=== PATIENT | female | born 1980 | race African-American/Black ===

== ENCOUNTER 2016-12-08 23:24 | Emergency (ER) | payer MEDICAID ==
[~2016-12-08] VITALS: Ht 170.2 cm; Wt 102.1 kg
[2016-12-08 23:37] VITALS: BP 146/72
[2016-12-09] MEDS ORDERED: DEXAMETHASONE SOD PHOSPHATE 10 MG/ML VIAL ONE (00:08)
[2016-12-09] MEDS ORDERED: PENICILLIN V POTASSIUM 500 MG TABLET PO ONE ×2 (00:08→00:30)
[2016-12-09] MEDS ORDERED: DEXAMETHASONE SOD PHOSPHATE 4 MG/ML VIAL IV ONE (00:30)
== END 2016-12-09 00:59 | disposition home or self-care (01) ==
LOC: ER 23:24
DX: J03.90 Acute tonsillitis, unspecified (principal); Z88.1 Allergy status to other antibiotic agents
CPT/HCPCS: 99283; A4606; J1100; Z7610

== ENCOUNTER 2016-12-16 00:29 | Emergency (ER) | payer MEDICAID ==
[~2016-12-16] VITALS: Ht 170.2 cm; Wt 102.1 kg
[2016-12-16 00:55] VITALS: BP 141/118
== END 2016-12-16 01:54 | disposition home or self-care (01) ==
LOC: ER 00:29
DX: J02.8 Acute pharyngitis due to other specified organisms (principal); B97.89 Other viral agents as the cause of diseases classified elsewhere; Z88.1 Allergy status to other antibiotic agents; F10.20 Alcohol dependence, uncomplicated
CPT/HCPCS: 99283; A4606; Z7610

== ENCOUNTER 2020-02-12 07:18 | Emergency (ER) | payer OTHER ==
[~2020-02-12] VITALS: Ht 172.7 cm; Wt 99.8 kg
--- NOTE | 2020-02-12 07:30 | NUR ---
COUGH, CONGESTION, AND CHILLS X 1 WEEK, WORSENING WITH SOB. PATIENT A/OX4, BREATHING EVEN AND UNLABORED, NO SOB NOTED. SPO2 99% ON ROOM AIR. SEEN AND EVALUATED BY DR. MENDIETA.
[2020-02-12 08:07] LABS: BASOPHILS # (AUTO) 0.1 /CMM (0.0-0.2); BASOPHILS % (AUTO) 0.8 % (0.0-2.0); EOSINOPHILS % (AUTO) 1.2 % (0.0-6.0); HEMATOCRIT 38 % (33-45); HEMOGLOBIN 12.3 g/dL (11.5-14.8); LYMPHOCYTES # (AUTO) 3.3 /CMM (0.8-4.8); LYMPHOCYTES % (AUTO) 37.6 % (20.0-44.0); MEAN CORPUSCULAR HGB CONC 33 g/dl (31.0-36.0); MEAN CORPUSCULAR VOLUME 87 fL (82-100); MONOCYTES # (AUTO) 0.7 /CMM (0.1-1.30); MONOCYTES % (AUTO) 8.1 % (2.0-12.0); NEUTROPHILS # (AUTO) 4.6 /CMM (1.8-8.9); NEUTROPHILS % (AUTO) 52.3 % (43.0-81.0); PLATELET COUNT (AUTO) 383 /CMM (150-450); WHITE BLOOD COUNT (AUTO) 8.8 K/uL (4.3-11.0)
[2020-02-12 08:17] LABS: CALCIUM, SERUM 8.9 mg/dL (8.5-10.1); CARBON DIOXIDE 24 mmol/L (21-32); CHLORIDE 103 mmol/L (98-107); CREATININE 0.7 mg/dL (0.6-1.3); GLUCOSE 111 mg/dL (74-106); POTASSIUM 3.6 mmol/L (3.5-5.1); SODIUM SERUM 139 mmol/L (136-145); UREA NITROGEN, BLOOD 10 mg/dL (7-18)
[2020-02-12 08:30] VITALS: BP 136/89
--- NOTE | 2020-02-12 08:30 | NUR ---
DR MENDIETA AT BEDSIDE
--- NOTE | 2020-02-12 08:38 | NUR ---
Patient discharged to home in stable condition. Written and verbal after care instructions given. Patient verbalizes understanding of instruction.
== END 2020-02-12 08:41 | disposition home or self-care (01) ==
LOC: ER 07:23
DX: R05 Cough (principal); R09.81 Nasal congestion; R50.9 Fever, unspecified; R00.0 Tachycardia, unspecified; Z79.899 Other long term (current) drug therapy; Z98.890 Other specified postprocedural states; Z88.1 Allergy status to other antibiotic agents; Z60.2 Problems related to living alone; Z20.828 Contact with and (suspected) exposure to other viral communicable diseases
CPT/HCPCS: 36415; 71045-TC; 80048-TC; 84484-TC; 85025-TC

== ENCOUNTER 2020-02-17 03:01 | Emergency (ER) | payer OTHER ==
[~2020-02-17] VITALS: Ht 171.4 cm; Wt 108.0 kg
--- NOTE | 2020-02-17 03:14 | NUR ---
PATIENT CAME TO ER BED 16 C/O ACCIDENTALLY DRINKING HYDROGEN PEROXIDE. PATIENT STATES THAT SHE HAD PREVIOUSLY PLACED HYDROGEN PEROIXIDE IN A NORMAL WATER BOTTLE WHEN SHE HAD JUST WOKEN UP AND ACCIDENTALLY INGESTED THE WATER BOTTLE CONTAINING HYDROGEN PEROXIDE. PATIENT STATES THAT SHE CALLED POISON CONTROL AND WAS DIRECTED TO THE ER. C/O NAUSEA AND ACID REFLUX SENSATION BURNING SENSTAION MID EPIGASTRIC REGION. AAOX4. NO SOB. BREATHING EVENLY AND UNLABORED ON ROOM AIR. CONNECTED TO MONITOR.
[2020-02-17] MEDS ORDERED: FAMOTIDINE/PF INJ 20 MG/2 ML VIAL IV ONE ×2 (03:21→03:30)
[2020-02-17] MEDS ORDERED: IV NS 0.9% 1,000 ML BAG IV ONE (03:30)
[2020-02-17] MEDS ORDERED: DIATR MEGLU/DIATRIZOATE SODIUM 30 ML BOTTLE (GASTROGRAPHIN) PO ONE (03:30)
--- NOTE | 2020-02-17 03:35 | NUR ---
Patient signed waiver form.
--- NOTE | 2020-02-17 03:35 | NUR ---
blood drawn and sent to lab
[2020-02-17 03:50] LABS: BASOPHILS % (AUTO) 0.4 % (0.0-2.0); EOSINOPHILS % (AUTO) 1.7 % (0.0-6.0); HEMATOCRIT 37 % (33-45); HEMOGLOBIN 12.2 g/dL (11.5-14.8); LYMPHOCYTES # (AUTO) 3.1 /CMM (0.8-4.8); LYMPHOCYTES % (AUTO) 40.4 % (20.0-44.0); MEAN CORPUSCULAR HGB CONC 34 g/dl (31.0-36.0); MEAN CORPUSCULAR VOLUME 87 fL (82-100); MONOCYTES # (AUTO) 0.6 /CMM (0.1-1.30); MONOCYTES % (AUTO) 8.1 % (2.0-12.0); NEUTROPHILS # (AUTO) 3.8 /CMM (1.8-8.9); NEUTROPHILS % (AUTO) 49.4 % (43.0-81.0); PLATELET COUNT (AUTO) 426 /CMM (150-450); RED BLOOD CELL COUNT(AUTO) 4.19 MIL/uL (4.0-5.2); WHITE BLOOD COUNT (AUTO) 7.8 K/uL (4.3-11.0)
[2020-02-17 03:56] LABS: CALCIUM, SERUM 8.6 mg/dL (8.5-10.1); CREATININE 0.7 mg/dL (0.6-1.3); POTASSIUM 3.9 mmol/L (3.5-5.1)
[2020-02-17 04:01] LABS: ALBUMIN 3.6 g/dL (3.4-5.0); BILIRUBIN,DIRECT 0.1 mg/dL (0.0-0.2); BILIRUBIN,TOTAL 0.1 mg/dL (0.2-1.0); TOTAL PROTEIN, SERUM 7.7 g/dL (6.4-8.2)
[2020-02-17] MEDS ORDERED: DIATR MEGLU/DIATRIZOATE SODIUM 30 ML BOTTLE (GASTROGRAPHIN) ONE (04:28)
[2020-02-17] MEDS ORDERED: CT SWABBABLE VALVE TRANS SET 1 EA INFUS.SET MC ONE (04:28)
[2020-02-17] MEDS ORDERED: IOHEXOL-300 100 ML VIAL IV ONE (04:28)
[2020-02-17] MEDS ORDERED: IV NS 0.9% 250 ML IV ONE (04:28)
[2020-02-17 06:01] VITALS: BP 123/77
--- NOTE | 2020-02-17 06:01 | NUR ---
IV removed. Catheter intact and site benign. Pressure and 4x4 applied to site. No bleeding noted. Patient discharged to home in stable condition. Written and verbal after care instructions given. Patient verbalizes understanding of instruction.
== END 2020-02-17 06:01 | disposition home or self-care (01) ==
LOC: ER 03:06
DX: T49.0X1A Poisoning by local antifungal, anti-infective and anti-inflammatory drugs, accidental (unintentional), initial encounter (principal); Y92.89 Other specified places as the place of occurrence of the external cause; Z98.890 Other specified postprocedural states; Z88.1 Allergy status to other antibiotic agents; Z60.2 Problems related to living alone
CPT/HCPCS: 36415; 74177; 80048; 80076; 83690; 85025; 99285; J3490; J7030; J7050; Q9963 ×2; Q9967

== ENCOUNTER 2020-05-11 20:32 | Emergency (ER) | payer OTHER ==
[~2020-05-11] VITALS: Ht 170.2 cm; Wt 103.0 kg
--- NOTE | 2020-05-11 21:02 | NUR ---
PATIENT CAME TO ER BED 9 C/O " I HAVE THIS PRESSURE FEELING ON MY CHEST" SINCE TODAY. DOES NOT COMPLAIN OF ANY PAIN. PATIENT IS AAOX4. DOES NOT HAVE C/O OF SOB. BREATHING EVENLY AND UNLABORED ON ROOM AIR. CONNECTED TO THE MONITOR.
[2020-05-11 21:29] LABS: BASOPHILS % (AUTO) 0.5 % (0.0-2.0); EOSINOPHILS % (AUTO) 1.1 % (0.0-6.0); HEMATOCRIT 36 % (33-45); LYMPHOCYTES # (AUTO) 1.8 /CMM (0.8-4.8); LYMPHOCYTES % (AUTO) 29.6 % (20.0-44.0); MEAN CORPUSCULAR HGB CONC 33 g/dl (31.0-36.0); MEAN CORPUSCULAR VOLUME 87 fL (82-100); MONOCYTES # (AUTO) 0.5 /CMM (0.1-1.30); MONOCYTES % (AUTO) 7.7 % (2.0-12.0); NEUTROPHILS # (AUTO) 3.7 /CMM (1.8-8.9); NEUTROPHILS % (AUTO) 61.1 % (43.0-81.0); PLATELET COUNT (AUTO) 468 /CMM (150-450); RED BLOOD CELL COUNT(AUTO) 4.17 MIL/uL (4.0-5.2); WHITE BLOOD COUNT (AUTO) 6.1 K/uL (4.3-11.0)
[2020-05-11 21:54] LABS: ALANINE AMINOTRANSFERASE 21 U/L (12-78); ALKALINE PHOSPHATASE 78 U/L (46-116); BILIRUBIN,TOTAL 0.2 mg/dL (0.2-1.0); CALCIUM, SERUM 8.5 mg/dL (8.5-10.1); CARBON DIOXIDE 26 mmol/L (21-32); CHLORIDE 99 mmol/L (98-107); CREATININE 0.7 mg/dL (0.6-1.3); GLUCOSE 98 mg/dL (74-106); POTASSIUM 3.5 mmol/L (3.5-5.1); SODIUM SERUM 135 mmol/L (136-145); TOTAL PROTEIN, SERUM 8.2 g/dL (6.4-8.2); UREA NITROGEN, BLOOD 9 mg/dL (7-18)
[2020-05-11 22:17] LABS: ASPARTATE AMINOTRANSFERASE 20 U/L (15-37)
--- NOTE | 2020-05-11 22:32 | NUR ---
XRAY NOTES STILL WAITING FOR RESULT FOR XRAY. [id number]
--- NOTE | 2020-05-11 22:45 | NUR ---
XRAY AT BEDSIDE
[2020-05-11 23:28] VITALS: BP 127/88
--- NOTE | 2020-05-11 23:28 | NUR ---
Patient discharged to home in stable condition. Written and verbal after care instructions given. Patient verbalizes understanding of instruction.
== END 2020-05-11 23:29 | disposition home or self-care (01) ==
LOC: ER 20:38
DX: R07.89 Other chest pain (principal); Z98.890 Other specified postprocedural states; Z88.1 Allergy status to other antibiotic agents; Z60.2 Problems related to living alone
CPT/HCPCS: 36415; 71045; 80048; 80076; 84484; 84702; 85025; 93005; 99285; J7040

== ENCOUNTER 2020-06-02 11:34 | Emergency (ER) | payer OTHER ==
[~2020-06-02] VITALS: Ht 170.2 cm; Wt 103.0 kg
--- NOTE | 2020-06-02 12:19 | NUR ---
Patient awake alert non distress hooked in the monitor ,ekg done
[2020-06-02 12:31] VITALS: BP 137/67
--- NOTE | 2020-06-02 12:32 | NUR ---
Patient discharged to home in stable condition. Written and verbal after care instructions given. Patient verbalizes understanding of instruction.
== END 2020-06-02 12:32 | disposition home or self-care (01) ==
LOC: ER 11:39
DX: R00.2 Palpitations (principal); Z98.890 Other specified postprocedural states; Z88.1 Allergy status to other antibiotic agents; Z60.2 Problems related to living alone

== ENCOUNTER 2021-12-02 19:02 | Emergency (ER) | payer OTHER ==
--- NOTE | 2021-12-02 20:55 | NUR ---
CALLED FOR TRIAGE , NO ANSWER
--- NOTE | 2021-12-02 21:05 | NUR ---
CALLED FOR TRIAGE , NO ANSWER
--- NOTE | 2021-12-02 21:55 | NUR ---
CALLED FOR TRIAGE , NO ANSWER
== END 2021-12-02 21:56 | disposition left against medical advice (07) ==
LOC: EDUNIT# 19:02 → ER 19:04
DX: Z53.21 Procedure and treatment not carried out due to patient leaving prior to being seen by health care provider (principal)